=== PATIENT | male | born 1970 | race African-American/Black ===

== ENCOUNTER 2019-04-03 17:47 | Inpatient (IN) | payer OTHER ==
[~2019-04-03] VITALS: Ht 188 cm; Wt 75.4 kg
[2019-04-03 19:39] LABS: HEMATOCRIT. 22.7 % (42.0-52.0); HEMOGLOBIN. 7.7 g/dL (14.0-18.0); MEAN CORPUSCULAR HEMOGLOBIN 27.8 pg (28.0-32.0); MEAN CORPUSCULAR VOLUME 82.3 fL (80.0-94.0); MEAN PLATELET VOLUME 6.6 fl (7.4-10.4); PLATELET 492 x1000/uL (130-400); RED BLOOD CELL COUNT 2.75 mill/uL (4.7-6.1); RED CELL DISTRIBUTION WIDTH 15.1 % (11.6-14.6)
[2019-04-03 19:43] LABS: CHLORIDE 101 mEq/L (98-107)
[2019-04-03 20:35] LABS: PLATELET ESTIMATE INCREASED
[2019-04-03] MEDS ORDERED: IOHEXOL-300 100 ML BOTTLE ONE (23:17)
[2019-04-04] VITALS (7 sets, daily range): BP systolic 132–138; BP diastolic 84–98
[2019-04-04] MEDS ORDERED: DEXAMETHASONE 10 MG/ML VIAL IV ONE (00:15)
[2019-04-04] MEDS ORDERED: DEXT 5%/0.45% NACL 1000ML 1,000 ML IV SCH (02:58)
[2019-04-04] MEDS ORDERED: HYDROCODONE/ACETAMINOPHEN 5/325MG TABLET PO PRN (03:00)
[2019-04-04] MEDS ORDERED: MAGNESIUM/ALUMINUM HYDROXIDE/SIMETHICONE 30ML UDC PO PRN (03:00)
[2019-04-04] MEDS ORDERED: GUAIFENESIN 200MG/10ML SUGAR FREE UDC PO PRN (03:00)
[2019-04-04] MEDS ORDERED: DOCUSATE SODIUM 100MG CAPSULE PO PRN (03:00)
[2019-04-04] MEDS ORDERED: CLONIDINE 0.1MG TABLET PO PRN (03:00)
[2019-04-04] MEDS ORDERED: ACETAMINOPHEN 650MG/20.3ML UDC GT PRN (03:00)
[2019-04-04] MEDS ORDERED: ACETAMINOPHEN 325MG TABLET PO PRN (03:00)
[2019-04-04] MEDS ORDERED: DIPHENHYDRAMINE 50MG/ML VIAL IV PRN (03:00)
[2019-04-04] MEDS ORDERED: NA PHOS,M-B/NA PHOS,DI-BA ENEMA 118ML PR PRN (03:00)
[2019-04-04] MEDS ORDERED: IPRATROPIUM/ALBUTEROL 0.5-3(2.5)MG/3ML NEB INH PRN (03:00)
[2019-04-04] MEDS ORDERED: ONDANSETRON HCL 4MG/2ML INJ IV PRN (03:00)
[2019-04-04] MEDS ORDERED: ACETAMINOPHEN 650MG SUPP PR PRN (03:00)
[2019-04-04] MEDS ORDERED: PANTOPRAZOLE SODIUM 40 MG/VIAL IV SCH (05:15)
[2019-04-04] MEDS ORDERED: MULT1TAB44 PO (05:15)
[2019-04-04] MEDS ORDERED: DOCU100T PO (05:15)
[2019-04-04] MEDS: SODIUM CHLORIDE 0.9% INJ 3ML FLUSH IVF SCH ×2 (05:26→15:14)
[2019-04-04 07:08] LABS: CLARITY URINE CLEAR (CLEAR); COLOR URINE DARK YELLOW (YELLOW); KETONES URINE 2+ (NEGATIVE); LEUKOCYTE ESTERASE URINE NEGATIVE (NEGATIVE); NITRITE URINE NEGATIVE (NEGATIVE); OCCULT BLOOD URINE NEGATIVE (NEGATIVE); PROTEIN URINE 1+ (NEGATIVE); SPECIFIC GRAVITY URINE 1.067 (1.005-1.030)
[2019-04-04 07:25] LABS: *AMPHETAMINES SCREEN URINE NEGATIVE (NEGATIVE); *BARBITURATES SCREEN URINE NEGATIVE (NEGATIVE); *BENZODIAZEPINES SCREEN URINE NEGATIVE (NEGATIVE); *COCAINE SCREEN URINE NEGATIVE (NEGATIVE); CANNABINOID URINE SCREEN NEGATIVE (NEGATIVE); METHADONE URINE SCREEN NEGATIVE (NEGATIVE); OPIATES URINE SCREEN NEGATIVE (NEGATIVE); PHENCYCLIDINE URINE SCREEN NEGATIVE (NEGATIVE)
[2019-04-04 10:18] LABS: HEMATOCRIT 22.1 % (42.0-52.0); HEMOGLOBIN 7.4 g/dL (14.0-18.0)
[2019-04-04 16:04] LABS: HEMOGLOBIN 7.1 g/dL (14.0-18.0)
[2019-04-04 16:11] LABS: HEMATOCRIT 20.8 % (42.0-52.0)
== END 2019-04-04 21:50 | disposition home or self-care (01) | DRG 155 ==
LOC: ER 17:47 → ENRESERV 04-04 03:58 → 5WST 04-04 04:02 → EDBEDREQ 04-04 04:11 → EDBEDREQTM 04-04 04:50
PROVIDERS: ADMIT Family Medicine; ATTEND Family Medicine
DX: J39.2 Other diseases of pharynx (principal); D62 Acute posthemorrhagic anemia; B20 Human immunodeficiency virus [HIV] disease; Z85.819 Personal history of malignant neoplasm of unspecified site of lip, oral cavity, and pharynx; Z92.21 Personal history of antineoplastic chemotherapy; Z92.3 Personal history of irradiation
CPT/HCPCS: 36415; 70110; 70490; 70491; 80305; 81003; 82553; 85014; 85018; 86850; 86900; 86920; 96365; 99285; C9113; J1100; Q9967